=== PATIENT | female | born 2000 | race African-American/Black ===

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

== ENCOUNTER 2019-03-31 01:36 | Emergency (ER) | payer SELFPAY ==
[2019-03-31 02:42] LABS: ACETAMINOPHEN < 2 ug/mL (<2)
--- NOTE | 2019-03-31 06:58 | EDM.PDOCBH ---
ED HPI GENERAL MEDICAL PROBLEM - General Chief Complaint: Drug or Alcohol Abuse Stated Complaint: OD Time Seen by Provider: 03/31/19 01:50 Source of Information: Reports: Patient History Limitations: Reports: No Limitations - History of Present Illness INITIAL COMMENTS - FREE TEXT/NARRATIVE: 18 yo college student who took some 40 tabs of a mixture of Wellbutrin,Zantac and Iron tabs(unknown formulation).She did this in frustration because of stress ,bad grades at school. She does have a diagnosis of MDD,and goes through [facility] Therapy locally.along with the Prozac. She has also been drinking tonight. She expresses regret to have take the pills,and denies any further plans for suicide.She does not endorse any nausea,vomit,chest pain or shortness of breath. - Related Data Allergies Allergy/AdvReac Type Severity Reaction Status Date / Time mushroom Allergy Cannot Verified 09/04/18 03:40 Remember Home Meds: Home Meds FLUoxetine HCl [Fluoxetine HCl] 40 mg PO DAILY 03/31/19 [History] Ranitidine HCl [Ranitidine] 150 mg PO DAILY 03/31/19 [History] buPROPion HCL [buPROPion HCl ER] 300 mg PO ONETIME 03/31/19 [History] Past Medical History - Past Health History Medical/Surgical History: Denies Medical/Surgical History Psychiatric History: Reports: Anxiety, Depression - Past Surgical History Other Surgical History Comment: No previous surgeries. Social & Family History - Family History Family Medical History: Noncontributory - Tobacco Use Smoking Status *Q: Never Smoker - Caffeine Use Caffeine Use: Reports: Soda - Living Situation & Occupation Occupation: Student (The patient is apparently a freshman in [employer].) ED ROS GENERAL - Review of Systems Review Of Systems: Comprehensive ROS is negative, except as noted in HPI. ED EXAM, BEHAVIORAL HEALTH - Physical Exam Exam: See Below Exam Limited By: No Limitations General Appearance: Alert, WD/WN Ears: Normal External Exam Nose: Normal Inspection Throat/Mouth: Normal Inspection Head: Atraumatic Respiratory/Chest: No Respiratory Distress, Lungs Clear, No Accessory Muscle Use Cardiovascular: Normal Peripheral Pulses Extremities: Normal Inspection Neurological: Alert, Normal Mood/Affect COURSE, BEHAVIORAL HEALTH COMP - Course Vital Signs: Last Vital Signs Temp 98.7 F 03/31/19 01:40 Pulse 91 03/31/19 01:40 Resp 14 03/31/19 01:40 BP 131/70 03/31/19 01:40 Pulse Ox 97 03/31/19 01:40 Orders, Labs, Meds: Active Orders 24 hr Category Date Time Status EKG Documentation Completion [RC] ASDIRECTED Care 03/31/19 10:40 Active EKG 12 Lead [EK] Routine Ther 03/31/19 10:40 Ordered Laboratory Tests 03/31/19 03/31/19 03/31/19 Range/Units 01:59 02:00 02:00 WBC 8.3 (4.5-12.0) X10-3/uL RBC 4.77 (3.23-5.20) x10(6)uL Hgb 13.6 (11.5-15.5) g/dL Hct 41.8 (30.0-51.3) % MCV 87.5 (80-96) fL MCH 28.4 (27.7-33.6) pg MCHC 32.5 (32.2-35.4) g/dL RDW 12.2 (11.5-15.5) % Plt Count 285 (125-369) X10(3)uL MPV 7.0 L (7.4-10.4) fL Neut % (Auto) 60.8 (46-82) % Lymph % (Auto) 31.1 (13-37) % [place] % (Auto) 6.9 (4-12) % Eos % (Auto) 1 (1.0-5.0) % Baso % (Auto) 1 (0-2) % Neut # (Auto) 4.9 (1.6-8.3) # Lymph # (Auto) 2.6 (0.6-5.0) # [place] # (Auto) 0.6 (0.0-1.3) # Eos # (Auto) 0.1 (0.0-0.8) # Baso # (Auto) 0.1 (0.0-0.2) # POC VBG pH (7.31-7.41) POC VBG pCO2 (41-51) mmHG POC VBG HCO3 (23-28) mmol/L POC VBG Total CO2 (24-29) mmol/L POC VBG Base Excess (-2-3) mmol/L Sodium 145 (135-145) mmol/L Potassium 3.6 (3.5-5.3) mmol/L Chloride 107 (100-110) mmol/L Carbon Dioxide 25 (21-32) mmol/L BUN 12 (7-18) mg/dL Creatinine 0.9 (0.55-1.02) mg/dL Est Cr Clr Drug Dosing 94.12 mL/min Estimated GFR (MDRD) > 60 (>60) BUN/Creatinine Ratio 13.3 (9-20) Glucose 86 (80-116) mg/dL Calcium 9.3 (8.2-10.1) mg/dL Iron TIBC Iron Saturation Unsaturated IBC Ferritin Total Bilirubin 0.3 (0.1-1.2) mg/dL AST 34 H D (5-25) IU/L ALT 28 D (12-36) U/L Alkaline Phosphatase 78 (56-112) IU/L Total Protein 8.4 H (6.0-8.0) g/dL Albumin 4.5 (3.2-4.5) g/dL Globulin 3.9 g/dL Albumin/Globulin Ratio 1.2 TSH, Ultra Sensitive (0.52-4.13) IU/mL Urine HCG, Qual Negative (NEGATIVE) Salicylates 1.3 L (<2.8) mg/dL Urine Opiates Screen (NEGATIVE) Ur Oxycodone Screen (NEGATIVE) Ur Propoxyphene Screen (NEGATIVE) Acetaminophen < 2 L (<2) ug/mL Ur Barbituates Screen (NEGATIVE) Ur Tricyclics Screen (NEGATIVE) Ur Phencyclidine Scrn (NEGATIVE) Ur Amphetamine Screen (NEGATIVE) Urine MDMA Screen (NEGATIVE) U Benzodiazepines Scrn (NEGATIVE) U Cocaine Metab Screen (NEGATIVE) U Marijuana (THC) Screen (NEGATIVE) Ethyl Alcohol (<0.03) % 03/31/19 03/31/19 03/31/19 Range/Units 02:00 02:06 03:30 WBC (4.5-12.0) X10-3/uL RBC (3.23-5.20) x10(6)uL Hgb (11.5-15.5) g/dL Hct (30.0-51.3) % MCV (80-96) fL MCH (27.7-33.6) pg MCHC (32.2-35.4) g/dL RDW (11.5-15.5) % Plt Count (125-369) X10(3)uL MPV (7.4-10.4) fL Neut % (Auto) (46-82) % Lymph % (Auto) (13-37) % [place] % (Auto) (4-12) % Eos % (Auto) (1.0-5.0) % Baso % (Auto) (0-2) % Neut # (Auto) (1.6-8.3) # Lymph # (Auto) (0.6-5.0) # [place] # (Auto) (0.0-1.3) # Eos # (Auto) (0.0-0.8) # Baso # (Auto) (0.0-0.2) # POC VBG pH (7.31-7.41) POC VBG pCO2 (41-51) mmHG POC VBG HCO3 (23-28) mmol/L POC VBG Total CO2 (24-29) mmol/L POC VBG Base Excess (-2-3) mmol/L Sodium (135-145) mmol/L Potassium (3.5-5.3) mmol/L Chloride (100-110) mmol/L Carbon Dioxide (21-32) mmol/L BUN (7-18) mg/dL Creatinine (0.55-1.02) mg/dL Est Cr Clr Drug Dosing mL/min Estimated GFR (MDRD) (>60) BUN/Creatinine Ratio (9-20) Glucose (80-116) mg/dL Calcium (8.2-10.1) mg/dL Iron 110 TIBC 489 (h) Iron Saturation 22 Unsaturated IBC Ferritin Total Bilirubin (0.1-1.2) mg/dL AST (5-25) IU/L ALT (12-36) U/L Alkaline Phosphatase (56-112) IU/L Total Protein (6.0-8.0) g/dL Albumin (3.2-4.5) g/dL Globulin g/dL Albumin/Globulin Ratio TSH, Ultra Sensitive (0.52-4.13) IU/mL Urine HCG, Qual (NEGATIVE) Salicylates (<2.8) mg/dL Urine Opiates Screen Negative (NEGATIVE) Ur Oxycodone Screen Negative (NEGATIVE) Ur Propoxyphene Screen Negative (NEGATIVE) Acetaminophen (<2) ug/mL Ur Barbituates Screen Negative (NEGATIVE) Ur Tricyclics Screen Negative (NEGATIVE) Ur Phencyclidine Scrn Negative (NEGATIVE) Ur Amphetamine Screen Negative (NEGATIVE) Urine MDMA Screen Negative (NEGATIVE) U Benzodiazepines Scrn Negative (NEGATIVE) U Cocaine Metab Screen Negative (NEGATIVE) U Marijuana (THC) Screen Negative (NEGATIVE) Ethyl Alcohol 0.12 H (<0.03) % 03/31/19 03/31/19 03/31/19 Range/Units 07:36 11:45 11:45 WBC (4.5-12.0) X10-3/uL RBC (3.23-5.20) x10(6)uL Hgb (11.5-15.5) g/dL Hct (30.0-51.3) % MCV (80-96) fL MCH (27.7-33.6) pg MCHC (32.2-35.4) g/dL RDW (11.5-15.5) % Plt Count (125-369) X10(3)uL MPV (7.4-10.4) fL Neut % (Auto) (46-82) % Lymph % (Auto) (13-37) % [place] % (Auto) (4-12) % Eos % (Auto) (1.0-5.0) % Baso % (Auto) (0-2) % Neut # (Auto) (1.6-8.3) # Lymph # (Auto) (0.6-5.0) # [place] # (Auto) (0.0-1.3) # Eos # (Auto) (0.0-0.8) # Baso # (Auto) (0.0-0.2) # POC VBG pH 7.39 (7.31-7.41) POC VBG pCO2 38.6 L (41-51) mmHG POC VBG HCO3 23.5 (23-28) mmol/L POC VBG Total CO2 25 (24-29) mmol/L POC VBG Base Excess -1 (-2-3) mmol/L Sodium (135-145) mmol/L Potassium (3.5-5.3) mmol/L Chloride (100-110) mmol/L Carbon Dioxide (21-32) mmol/L BUN (7-18) mg/dL Creatinine (0.55-1.02) mg/dL Est Cr Clr Drug Dosing mL/min Estimated GFR (MDRD) (>60) BUN/Creatinine Ratio (9-20) Glucose (80-116) mg/dL Calcium (8.2-10.1) mg/dL Iron TNP TIBC 505 Iron Saturation 18 Unsaturated IBC TNP Ferritin 9 Total Bilirubin (0.1-1.2) mg/dL AST (5-25) IU/L ALT (12-36) U/L Alkaline Phosphatase (56-112) IU/L Total Protein (6.0-8.0) g/dL Albumin (3.2-4.5) g/dL Globulin g/dL Albumin/Globulin Ratio TSH, Ultra Sensitive (0.52-4.13) IU/mL Urine HCG, Qual (NEGATIVE) Salicylates (<2.8) mg/dL Urine Opiates Screen (NEGATIVE) Ur Oxycodone Screen (NEGATIVE) Ur Propoxyphene Screen (NEGATIVE) Acetaminophen (<2) ug/mL Ur Barbituates Screen (NEGATIVE) Ur Tricyclics Screen (NEGATIVE) Ur Phencyclidine Scrn (NEGATIVE) Ur Amphetamine Screen (NEGATIVE) Urine MDMA Screen (NEGATIVE) U Benzodiazepines Scrn (NEGATIVE) U Cocaine Metab Screen (NEGATIVE) U Marijuana (THC) Screen (NEGATIVE) Ethyl Alcohol (<0.03) % 03/31/19 03/31/19 Range/Units 11:45 11:45 WBC (4.5-12.0) X10-3/uL RBC (3.23-5.20) x10(6)uL Hgb (11.5-15.5) g/dL Hct (30.0-51.3) % MCV (80-96) fL MCH (27.7-33.6) pg MCHC (32.2-35.4) g/dL RDW (11.5-15.5) % Plt Count (125-369) X10(3)uL MPV (7.4-10.4) fL Neut % (Auto) (46-82) % Lymph % (Auto) (13-37) % [place] % (Auto) (4-12) % Eos % (Auto) (1.0-5.0) % Baso % (Auto) (0-2) % Neut # (Auto) (1.6-8.3) # Lymph # (Auto) (0.6-5.0) # [place] # (Auto) (0.0-1.3) # Eos # (Auto) (0.0-0.8) # Baso # (Auto) (0.0-0.2) # POC VBG pH (7.31-7.41) POC VBG pCO2 (41-51) mmHG POC VBG HCO3 (23-28) mmol/L POC VBG Total CO2 (24-29) mmol/L POC VBG Base Excess (-2-3) mmol/L Sodium (135-145) mmol/L Potassium (3.5-5.3) mmol/L Chloride (100-110) mmol/L Carbon Dioxide (21-32) mmol/L BUN (7-18) mg/dL Creatinine (0.55-1.02) mg/dL Est Cr Clr Drug Dosing mL/min Estimated GFR (MDRD) (>60) BUN/Creatinine Ratio (9-20) Glucose (80-116) mg/dL Calcium (8.2-10.1) mg/dL Iron TIBC Iron Saturation Unsaturated IBC Ferritin Total Bilirubin (0.1-1.2) mg/dL AST (5-25) IU/L ALT (12-36) U/L Alkaline Phosphatase (56-112) IU/L Total Protein (6.0-8.0) g/dL Albumin (3.2-4.5) g/dL Globulin g/dL Albumin/Globulin Ratio TSH, Ultra Sensitive 2.54 (0.52-4.13) IU/mL Urine HCG, Qual (NEGATIVE) Salicylates (<2.8) mg/dL Urine Opiates Screen (NEGATIVE) Ur Oxycodone Screen (NEGATIVE) Ur Propoxyphene Screen (NEGATIVE) Acetaminophen (<2) ug/mL Ur Barbituates Screen (NEGATIVE) Ur Tricyclics Screen (NEGATIVE) Ur Phencyclidine Scrn (NEGATIVE) Ur Amphetamine Screen (NEGATIVE) Urine MDMA Screen (NEGATIVE) U Benzodiazepines Scrn (NEGATIVE) U Cocaine Metab Screen (NEGATIVE) U Marijuana (THC) Screen (NEGATIVE) Ethyl Alcohol < 0.03 (<0.03) % Departure - Departure Time of Disposition: 07:50 Disposition: Home, Self-Care 01 Condition: Good Clinical Impression: Poisoning by iron and its compounds, intentional self-harm, initial encounter, Acute alcohol intoxication, Suicidal ideation, Alcohol abuse - Discharge Information Instructions: Drug Overdose, Supporting Someone With Self-Harming Behavior, What You Need to Know About Poisoning, Adult, Self-Harming Behavior Information Referrals: Mabel Rosa NP [Primary Care Provider] - Forms: ED Department Discharge Care Plan Goals: Return to the ER if you have feelings of harming yourself. Please seek supportive services. Sepsis Event Note - Evaluation Sepsis Screening Result: No Definite Risk - Focused Exam Date Exam was Performed: 04/01/19 Time Exam was Performed: 07:50 - Problem List & Annotations (1) MDD (major depressive disorder) SNOMED Code(s): 636215482 Code(s): F32.9 - MAJOR DEPRESSIVE DISORDER, SINGLE EPISODE, UNSPECIFIED Status: Acute Qualifiers: Major depression recurrence: recurrent Active/Remission status: currently active (2) Overdose SNOMED Code(s): 38725958 Code(s): T50.901A - POISONING BY UNSP DRUG/MEDS/BIOL SUBST, ACCIDENTAL, INIT Status: Acute Qualifiers: Encounter type: initial encounter (3) Poisoning by iron and its compounds, intentional self-harm, initial encounter SNOMED Code(s): 06455930, 717270977 Code(s): T45.4X2A - POISONING BY IRON AND ITS COMPOUNDS, SELF-HARM, INIT Status: Acute - Problem List Review Problem List Initiated/Reviewed/Updated: Yes - Assessment/Plan Plan: Abdominal Xray does not show any opaque pills. She has no major symptoms.Obtain SIC levels.
[2019-03-31 09:39] LABS: IRON SATURATION 22
[2019-03-31 09:40] LABS: IRON BIND.CAP.(TIBC) 489 (H); IRON, SERUM 110
--- NOTE | 2019-03-31 11:33 | EDM.PDOCBH ---
ED HPI GENERAL MEDICAL PROBLEM - General Chief Complaint: Drug or Alcohol Abuse Stated Complaint: OD Time Seen by Provider: 03/31/19 08:30 Source of Information: Reports: Patient History Limitations: Reports: No Limitations - History of Present Illness INITIAL COMMENTS - FREE TEXT/NARRATIVE: 18 yo college student who took some 40 tabs of a mixture of Wellbutrin,Zantac and Iron tabs(unknown formulation).She did this in frustration because of stress ,bad grades at school. She does have a diagnosis of MDD,and goes through [facility] Behavior[facility] Therapy locally.along with the Prozac. She has also been drinking tonight. She expresses regret to have take the pills,and denies any further plans for suicide.She does not endorse any nausea,vomit,chest pain or shortness of breath. Onset Date: 03/30/19 Duration: Improving Improves with: Reports: None Worsens with: Reports: None Associated Symptoms: Reports: No Other Symptoms - Related Data Allergies Allergy/AdvReac Type Severity Reaction Status Date / Time mushroom Allergy Cannot Verified 09/04/18 03:40 Remember Home Meds: Home Meds FLUoxetine HCl [Fluoxetine HCl] 40 mg PO DAILY 03/31/19 [History] Ranitidine HCl [Ranitidine] 150 mg PO DAILY 03/31/19 [History] buPROPion HCL [buPROPion HCl ER] 300 mg PO ONETIME 03/31/19 [History] Past Medical History - Past Health History Medical/Surgical History: Denies Medical/Surgical History Psychiatric History: Reports: Anxiety, Depression - Past Surgical History Other Surgical History Comment: No previous surgeries. Social & Family History - Family History Family Medical History: Noncontributory - Tobacco Use Smoking Status *Q: Never Smoker - Caffeine Use Caffeine Use: Reports: Soda - Living Situation & Occupation Occupation: Student (The patient is apparently a freshman in [id number] ED ROS GENERAL - Review of Systems Review Of Systems: Comprehensive ROS is negative, except as noted in HPI. ED EXAM, BEHAVIORAL HEALTH - Physical Exam Exam: See Below Text/Narrative:: pt has had no symptoms since arrival in the ER , Has had no chest pains , no palpitations , no abdominal cramps . Behavior has been cooperative Exam Limited By: No Limitations General Appearance: Alert, WD/WN, No Apparent Distress Eye Exam: Bilateral Eye: EOMI Ears: Normal External Exam Nose: Normal Inspection Throat/Mouth: Normal Oropharynx Head: Atraumatic, Normocephalic Neck: Supple, Non-Tender, Full Range of Motion Respiratory/Chest: Lungs Clear, Normal Breath Sounds GI/Abdominal: Soft, Non-Tender, No Organomegaly, No Distention Back Exam: Normal Inspection, Full Range of Motion Extremities: Normal Range of Motion, Non-Tender Neurological: Alert, Normal Mood/Affect, CN II-XII Intact, Oriented x 3 Psychiatric: Alert, Normal Affect Skin Exam: Warm EKG INTERPRETATION EKG Date: 03/31/19 Rhythm: NSR [place]: Normal P-Wave: Present QRS: Normal ST-T: Normal QT: Normal Comparison: Change From Previous EKG EKG Interpretation Comments: no longer has prolonged QT compared to initial EKG COURSE, BEHAVIORAL HEALTH COMP - Course Vital Signs: Last Vital Signs Temp 37.1 C 03/31/19 01:40 Pulse 91 03/31/19 01:40 Resp 14 03/31/19 01:40 BP 131/70 03/31/19 01:40 Pulse Ox 97 03/31/19 01:40 Orders, Labs, Meds: Laboratory Tests 03/31/19 03/31/19 03/31/19 Range/Units 01:59 02:00 02:00 WBC 8.3 (4.5-12.0) X10-3/uL RBC 4.77 (3.23-5.20) x10(6)uL Hgb 13.6 (11.5-15.5) g/dL Hct 41.8 (30.0-51.3) % MCV 87.5 (80-96) fL MCH 28.4 (27.7-33.6) pg MCHC 32.5 (32.2-35.4) g/dL RDW 12.2 (11.5-15.5) % Plt Count 285 (125-369) X10(3)uL MPV 7.0 L (7.4-10.4) fL Neut % (Auto) 60.8 (46-82) % Lymph % (Auto) 31.1 (13-37) % [place] % (Auto) 6.9 (4-12) % Eos % (Auto) 1 (1.0-5.0) % Baso % (Auto) 1 (0-2) % Neut # (Auto) 4.9 (1.6-8.3) # Lymph # (Auto) 2.6 (0.6-5.0) # [place] # (Auto) 0.6 (0.0-1.3) # Eos # (Auto) 0.1 (0.0-0.8) # Baso # (Auto) 0.1 (0.0-0.2) # POC VBG pH (7.31-7.41) POC VBG pCO2 (41-51) mmHG POC VBG HCO3 (23-28) mmol/L POC VBG Total CO2 (24-29) mmol/L POC VBG Base Excess (-2-3) mmol/L Sodium 145 (135-145) mmol/L Potassium 3.6 (3.5-5.3) mmol/L Chloride 107 (100-110) mmol/L Carbon Dioxide 25 (21-32) mmol/L BUN 12 (7-18) mg/dL Creatinine 0.9 (0.55-1.02) mg/dL Est Cr Clr Drug Dosing 94.12 mL/min Estimated GFR (MDRD) > 60 (>60) BUN/Creatinine Ratio 13.3 (9-20) Glucose 86 (80-116) mg/dL Calcium 9.3 (8.2-10.1) mg/dL Iron TIBC Iron Saturation Unsaturated IBC Ferritin Total Bilirubin 0.3 (0.1-1.2) mg/dL AST 34 H D (5-25) IU/L ALT 28 D (12-36) U/L Alkaline Phosphatase 78 (56-112) IU/L Total Protein 8.4 H (6.0-8.0) g/dL Albumin 4.5 (3.2-4.5) g/dL Globulin 3.9 g/dL Albumin/Globulin Ratio 1.2 TSH, Ultra Sensitive (0.52-4.13) IU/mL Urine HCG, Qual Negative (NEGATIVE) Salicylates 1.3 L (<2.8) mg/dL Urine Opiates Screen (NEGATIVE) Ur Oxycodone Screen (NEGATIVE) Ur Propoxyphene Screen (NEGATIVE) Acetaminophen < 2 L (<2) ug/mL Ur Barbituates Screen (NEGATIVE) Ur Tricyclics Screen (NEGATIVE) Ur Phencyclidine Scrn (NEGATIVE) Ur Amphetamine Screen (NEGATIVE) Urine MDMA Screen (NEGATIVE) U Benzodiazepines Scrn (NEGATIVE) U Cocaine Metab Screen (NEGATIVE) U Marijuana (THC) Screen (NEGATIVE) Ethyl Alcohol (<0.03) % 03/31/19 03/31/19 03/31/19 Range/Units 02:00 02:06 03:30 WBC (4.5-12.0) X10-3/uL RBC (3.23-5.20) x10(6)uL Hgb (11.5-15.5) g/dL Hct (30.0-51.3) % MCV (80-96) fL MCH (27.7-33.6) pg MCHC (32.2-35.4) g/dL RDW (11.5-15.5) % Plt Count (125-369) X10(3)uL MPV (7.4-10.4) fL Neut % (Auto) (46-82) % Lymph % (Auto) (13-37) % [place] % (Auto) (4-12) % Eos % (Auto) (1.0-5.0) % Baso % (Auto) (0-2) % Neut # (Auto) (1.6-8.3) # Lymph # (Auto) (0.6-5.0) # [place] # (Auto) (0.0-1.3) # Eos # (Auto) (0.0-0.8) # Baso # (Auto) (0.0-0.2) # POC VBG pH (7.31-7.41) POC VBG pCO2 (41-51) mmHG POC VBG HCO3 (23-28) mmol/L POC VBG Total CO2 (24-29) mmol/L POC VBG Base Excess (-2-3) mmol/L Sodium (135-145) mmol/L Potassium (3.5-5.3) mmol/L Chloride (100-110) mmol/L Carbon Dioxide (21-32) mmol/L BUN (7-18) mg/dL Creatinine (0.55-1.02) mg/dL Est Cr Clr Drug Dosing mL/min Estimated GFR (MDRD) (>60) BUN/Creatinine Ratio (9-20) Glucose (80-116) mg/dL Calcium (8.2-10.1) mg/dL Iron 110 TIBC 489 (h) Iron Saturation 22 Unsaturated IBC Ferritin Total Bilirubin (0.1-1.2) mg/dL AST (5-25) IU/L ALT (12-36) U/L Alkaline Phosphatase (56-112) IU/L Total Protein (6.0-8.0) g/dL Albumin (3.2-4.5) g/dL Globulin g/dL Albumin/Globulin Ratio TSH, Ultra Sensitive (0.52-4.13) IU/mL Urine HCG, Qual (NEGATIVE) Salicylates (<2.8) mg/dL Urine Opiates Screen Negative (NEGATIVE) Ur Oxycodone Screen Negative (NEGATIVE) Ur Propoxyphene Screen Negative (NEGATIVE) Acetaminophen (<2) ug/mL Ur Barbituates Screen Negative (NEGATIVE) Ur Tricyclics Screen Negative (NEGATIVE) Ur Phencyclidine Scrn Negative (NEGATIVE) Ur Amphetamine Screen Negative (NEGATIVE) Urine MDMA Screen Negative (NEGATIVE) U Benzodiazepines Scrn Negative (NEGATIVE) U Cocaine Metab Screen Negative (NEGATIVE) U Marijuana (THC) Screen Negative (NEGATIVE) Ethyl Alcohol 0.12 H (<0.03) % 03/31/19 03/31/19 03/31/19 Range/Units 07:36 11:45 11:45 WBC (4.5-12.0) X10-3/uL RBC (3.23-5.20) x10(6)uL Hgb (11.5-15.5) g/dL Hct (30.0-51.3) % MCV (80-96) fL MCH (27.7-33.6) pg MCHC (32.2-35.4) g/dL RDW (11.5-15.5) % Plt Count (125-369) X10(3)uL MPV (7.4-10.4) fL Neut % (Auto) (46-82) % Lymph % (Auto) (13-37) % [place] % (Auto) (4-12) % Eos % (Auto) (1.0-5.0) % Baso % (Auto) (0-2) % Neut # (Auto) (1.6-8.3) # Lymph # (Auto) (0.6-5.0) # [place] # (Auto) (0.0-1.3) # Eos # (Auto) (0.0-0.8) # Baso # (Auto) (0.0-0.2) # POC VBG pH 7.39 (7.31-7.41) POC VBG pCO2 38.6 L (41-51) mmHG POC VBG HCO3 23.5 (23-28) mmol/L POC VBG Total CO2 25 (24-29) mmol/L POC VBG Base Excess -1 (-2-3) mmol/L Sodium (135-145) mmol/L Potassium (3.5-5.3) mmol/L Chloride (100-110) mmol/L Carbon Dioxide (21-32) mmol/L BUN (7-18) mg/dL Creatinine (0.55-1.02) mg/dL Est Cr Clr Drug Dosing mL/min Estimated GFR (MDRD) (>60) BUN/Creatinine Ratio (9-20) Glucose (80-116) mg/dL Calcium (8.2-10.1) mg/dL Iron TNP TIBC 505 Iron Saturation 18 Unsaturated IBC TNP Ferritin 9 Total Bilirubin (0.1-1.2) mg/dL AST (5-25) IU/L ALT (12-36) U/L Alkaline Phosphatase (56-112) IU/L Total Protein (6.0-8.0) g/dL Albumin (3.2-4.5) g/dL Globulin g/dL Albumin/Globulin Ratio TSH, Ultra Sensitive (0.52-4.13) IU/mL Urine HCG, Qual (NEGATIVE) Salicylates (<2.8) mg/dL Urine Opiates Screen (NEGATIVE) Ur Oxycodone Screen (NEGATIVE) Ur Propoxyphene Screen (NEGATIVE) Acetaminophen (<2) ug/mL Ur Barbituates Screen (NEGATIVE) Ur Tricyclics Screen (NEGATIVE) Ur Phencyclidine Scrn (NEGATIVE) Ur Amphetamine Screen (NEGATIVE) Urine MDMA Screen (NEGATIVE) U Benzodiazepines Scrn (NEGATIVE) U Cocaine Metab Screen (NEGATIVE) U Marijuana (THC) Screen (NEGATIVE) Ethyl Alcohol (<0.03) % 03/31/19 03/31/19 Range/Units 11:45 11:45 WBC (4.5-12.0) X10-3/uL RBC (3.23-5.20) x10(6)uL Hgb (11.5-15.5) g/dL Hct (30.0-51.3) % MCV (80-96) fL MCH (27.7-33.6) pg MCHC (32.2-35.4) g/dL RDW (11.5-15.5) % Plt Count (125-369) X10(3)uL MPV (7.4-10.4) fL Neut % (Auto) (46-82) % Lymph % (Auto) (13-37) % [place] % (Auto) (4-12) % Eos % (Auto) (1.0-5.0) % Baso % (Auto) (0-2) % Neut # (Auto) (1.6-8.3) # Lymph # (Auto) (0.6-5.0) # [place] # (Auto) (0.0-1.3) # Eos # (Auto) (0.0-0.8) # Baso # (Auto) (0.0-0.2) # POC VBG pH (7.31-7.41) POC VBG pCO2 (41-51) mmHG POC VBG HCO3 (23-28) mmol/L POC VBG Total CO2 (24-29) mmol/L POC VBG Base Excess (-2-3) mmol/L Sodium (135-145) mmol/L Potassium (3.5-5.3) mmol/L Chloride (100-110) mmol/L Carbon Dioxide (21-32) mmol/L BUN (7-18) mg/dL Creatinine (0.55-1.02) mg/dL Est Cr Clr Drug Dosing mL/min Estimated GFR (MDRD) (>60) BUN/Creatinine Ratio (9-20) Glucose (80-116) mg/dL Calcium (8.2-10.1) mg/dL Iron TIBC Iron Saturation Unsaturated IBC Ferritin Total Bilirubin (0.1-1.2) mg/dL AST (5-25) IU/L ALT (12-36) U/L Alkaline Phosphatase (56-112) IU/L Total Protein (6.0-8.0) g/dL Albumin (3.2-4.5) g/dL Globulin g/dL Albumin/Globulin Ratio TSH, Ultra Sensitive 2.54 (0.52-4.13) IU/mL Urine HCG, Qual (NEGATIVE) Salicylates (<2.8) mg/dL Urine Opiates Screen (NEGATIVE) Ur Oxycodone Screen (NEGATIVE) Ur Propoxyphene Screen (NEGATIVE) Acetaminophen (<2) ug/mL Ur Barbituates Screen (NEGATIVE) Ur Tricyclics Screen (NEGATIVE) Ur Phencyclidine Scrn (NEGATIVE) Ur Amphetamine Screen (NEGATIVE) Urine MDMA Screen (NEGATIVE) U Benzodiazepines Scrn (NEGATIVE) U Cocaine Metab Screen (NEGATIVE) U Marijuana (THC) Screen (NEGATIVE) Ethyl Alcohol < 0.03 (<0.03) % Re-Assessment/Re-Exam: labs reviewed and iron levels are within normal range . pt is asymptomatic Call came form poison control and requested repeat EKG ( done ) and iron levels . Repeat Iron ferritin and TIBC levels sent pt is currently awaiting placement Medical Clearance: 03/31/19 15:33 pt was cleared medically to go for inpatient therapy She declined to go for inpatient treatment Stated she had talked to crisis management and had plans in place to continue with her current therapy . Iron levels have remained within normal limits Has had no seizure episode ( overdosed on Bupropion) Has appointment set up with her psychotherapist , will FU will PCP also Discharge vs Psych Eval/Treatment:: 03/31/19 15:36 pt will be discharged home as she declined to go for inpatient psychotherapy Departure - Departure Time of Disposition: 16:54 Disposition: Home, Self-Care 01 Condition: Good Clinical Impression: Poisoning by iron and its compounds, intentional self-harm, initial encounter, Suicidal ideation, Alcohol abuse Acute alcohol intoxication Qualifiers: Complication of substance-induced condition: uncomplicated Qualified Code(s): F10.920 - Alcohol use, unspecified with intoxication, uncomplicated - Discharge Information *PRESCRIPTION DRUG MONITORING PROGRAM REVIEWED*: Not Applicable *COPY OF PRESCRIPTION DRUG MONITORING REPORT IN PATIENT TRAVON: Not Applicable Instructions: Drug Overdose, Supporting Someone With Self-Harming Behavior, What You Need to Know About Poisoning, Adult, Self-Harming Behavior Information Referrals: Mabel Rosa NP [Primary Care Provider] - Forms: ED Department Discharge Care Plan Goals: Return to the ER if you have feelings of harming yourself. Please seek supportive services. Sepsis Event Note - Evaluation Sepsis Screening Result: No Definite Risk - Focused Exam Date Exam was Performed: 04/02/19 Time Exam was Performed: 07:05
[2019-03-31 15:19] LABS: IRON BIND.CAP.(TIBC) 505
[2019-03-31 15:20] LABS: IRON SATURATION 18
--- NOTE | 2019-03-31 18:06 | CR ---
INDICATION: Drug overdose. ABDOMEN SERIES WITH CHEST, ONE VIEW: AP view of the chest with 5 views of the abdomen in supine and upright projections revealed a moderate dextroconvex scoliosis at the lower middle thoracic spine. The heart and mediastinum were unremarkable. A definite active infiltrate or effusion was not identified. The pattern of gas and feces is nonspecific without evidence of free air or obstruction. There is a dextroconcave scoliosis at the upper middle lumbar spine. No organomegaly or mass lesions or pathologic calcifications were noted. IMPRESSION: 1. Nonacute abdomen. 2. Nonacute chest. 3. Scoliosis. MTDD
== END 2019-03-31 16:54 | disposition home or self-care (01) ==
LOC: FB.ED 01:36
DX: T45.4X2A Poisoning by iron and its compounds, intentional self-harm, initial encounter (principal); T43.292A Poisoning by other antidepressants, intentional self-harm, initial encounter; T47.0X2A Poisoning by histamine H2-receptor blockers, intentional self-harm, initial encounter; F10.920 Alcohol use, unspecified with intoxication, uncomplicated; F32.9 Major depressive disorder, single episode, unspecified; Z91.018 Allergy to other foods; Z79.899 Other long term (current) drug therapy; Y90.0 Blood alcohol level of less than 20 mg/100 ml
CPT/HCPCS: 36415; 74022; 80053; 80305-QW; 80307; 81025; 82728; 82803; 83540; 83550; 84443; 85025; 93005; 99285-25

== ENCOUNTER 2022-03-27 09:28 | Emergency (ER) | payer MEDICAID ==
[2022-03-27 10:28] LABS: ESTIMATED GFR 82 mL/min (>60)
== END 2022-03-27 11:35 | disposition home or self-care (01) ==
LOC: FB.ED 09:28
DX: N92.6 Irregular menstruation, unspecified (principal); Z91.018 Allergy to other foods; Z91.09 Other allergy status, other than to drugs and biological substances; Z72.0 Tobacco use
CPT/HCPCS: 36415; 80053; 81001; 82150; 83690; 85025; 99282; 99284

== ENCOUNTER 2024-04-22 18:17 | Emergency (ER) | payer MEDICAID, OTHER ==
[2024-04-22] MEDS: traMADol 50 MG Tab PO ONE (19:29)
== END 2024-04-22 22:30 | disposition home or self-care (01) ==
LOC: FB.ED 18:17
DX: S00.81XA Abrasion of other part of head, initial encounter (principal); M25.552 Pain in left hip; Z91.030 Bee allergy status; Z91.018 Allergy to other foods; Z79.899 Other long term (current) drug therapy; V49.49XA Driver injured in collision with other motor vehicles in traffic accident, initial encounter; Y93.89 Activity, other specified
CPT/HCPCS: 70450; 72125; 72192; 73502; 99284; A9270

== ENCOUNTER 2024-05-28 14:53 | Emergency (ER) | payer MEDICAID | END 2024-05-28 15:35 | disposition home or self-care (01) | LOC: FB.ED 14:53 | DX: T17.1XXA Foreign body in nostril, initial encounter (principal); Z91.030 Bee allergy status; Z91.018 Allergy to other foods; Z79.899 Other long term (current) drug therapy | CPT/HCPCS: 99282 ==

== ENCOUNTER 2024-06-14 22:41 | Emergency (ER) | payer MEDICAID ==
[2024-06-14] MEDS: LORazepam 2 MG/ML SDV IVPUSH ONE (22:41)
[2024-06-14] MEDS ORDERED: Sodium Chloride 0.9% 10 ML Syringe FLUSH PRN (22:42)
[2024-06-14] MEDS: OLANZapine 10 MG Vial ONE (22:45)
[2024-06-14] MEDS ORDERED: OLANZapine 10 MG Vial IM ONE (22:45)
[2024-06-14 22:59] LABS: BASOPHILS ABSOLUTE AUTO 0.1 x10-3/uL (0.0-0.1); BASOPHILS PERCENT AUTO 1.1 % (0.2-1.5); EOSINOPHILS ABSOLUTE AUTO 0.2 x10-3/uL (0.0-0.8); EOSINOPHILS PERCENT AUTO 2.5 % (0.6-8.1); HEMATOCRIT 42.9 % (34.2-48.2); HEMOGLOBIN 14.6 g/dL (11.4-15.5); LYMPHOCYTES ABSOLUTE AUTO 2.7 x10-3/uL (1.0-4.4); LYMPHOCYTES PERCENT AUTO 42.2 % (18.4-52.1); MEAN CORPUSCULAR HEMOGLOBIN 29.9 pg (23.9-33.9); MEAN CORPUSCULAR HGB CONC 33.9 g/dL (31.9-34.8); MEAN CORPUSCULAR VOLUME 88.2 fL (76.7-100.5); MEAN PLATELET VOLUME 6.6 fL (7.1-12.4); MONOCYTES ABSOLUTE AUTO 0.5 x10-3/uL (0.3-1.0); MONOCYTES PERCENT AUTO 7.3 % (4.4-15.7); NEUTROPHILS PERCENT AUTO 46.9 % (30.8-76.2); PLATELET COUNT,PLT 306 x10(3)uL (151-488); RED BLOOD CELL COUNT 4.87 x10(6)uL (3.60-5.20); RED CELL DISTRIBUTION WIDTH 13.5 % (12.3-16.5); WHITE BLOOD CELL COUNT,WBC 6.3 x10-3/uL (3.0-10.3)
[2024-06-14 23:05] LABS: BLOOD UREA NITROGEN,BUN 8 mg/dL (7-18); BUN/CREATININE RATIO 8.9 (9-20); CALCIUM 8.9 mg/dL (8.6-10.2); CARBON DIOXIDE,CO2 22 mmol/L (21-32); CHLORIDE,CL 107 mmol/L (100-110); CREATININE 0.9 mg/dL (0.55-1.02); EST CRCL DRUG DOSING (CG) 90.23 mL/min; ESTIMATED GFR 92 mL/min (>60); GLUCOSE RANDOM 97 mg/dL (80-116); POTASSIUM,K 3.4 mmol/L (3.5-5.3); SODIUM,NA 144 mmol/L (135-145)
[2024-06-14 23:11] LABS: ALANINE AMINOTRANSFERASE,ALT 31 U/L (12-36); ALBUMIN 4.3 g/dL (3.5-5.2); ALKALINE PHOSPHATASE 64 IU/L (56-112); ASPARTATE AMNIOTRANSFERASE,AST 26 IU/L (5-25); BILIRUBIN TOTAL 0.4 mg/dL (0.1-1.3); PROTEIN TOTAL,TP 8.5 g/dL (6.0-8.0)
[2024-06-14] MEDS: Thiamine 200 MG/2 ML MDV IVPUSH ONE (23:52)
[2024-06-14] MEDS: Sodium Chloride 0.9% 1,000 ML IV SCH (23:53)
[2024-06-15 00:01] LABS: APPEARANCE,URINE CLEAR (CLEAR); BILIRUBIN,URINE NEGATIVE (NEGATIVE); COLOR,URINE YELLOW (YELLOW); GLUCOSE,URINE NORMAL (NORMAL); KETONES,URINE NEGATIVE (NEGATIVE); LEUKOCYTE ESTERASE,URINE NEGATIVE (NEGATIVE); NITRITE,URINE NEGATIVE (NEGATIVE); OCCULT BLOOD,URINE NEGATIVE (NEGATIVE); PROTEIN,URINE NEGATIVE (NEGATIVE); UROBILINOGEN,URINE NORMAL (NEGATIVE)
[2024-06-15 00:02] LABS: SALICYLATE 3.4 mg/dL (<2.8)
[2024-06-15 00:03] LABS: ACETAMINOPHEN < 2 ug/mL (<2)
[2024-06-15 00:20] LABS: AMPHETAMINES SCREEN, URINE NEGATIVE (NEGATIVE); BARBITURATE SCREEN,URINE NEGATIVE (NEGATIVE); BENZODIAZEPINES SCREEN,URINE NEGATIVE (NEGATIVE); BUPRENORPHINE SCREEN,URINE NEGATIVE (NEGATIVE); METHADONE SCREEN, URINE NEGATIVE (NEGATIVE); METHAMPHETAMINE SCREEN, URINE NEGATIVE (NEGATIVE); OXYCODONE SCREEN,URINE NEGATIVE (NEGATIVE); THC SCREEN,URINE NEGATIVE (NEGATIVE)
[2024-06-17 01:51] LABS: THYROXINE, TOTAL T4 8.39 ug/dL (4.50-11.70)
== END 2024-06-15 09:45 | disposition home or self-care (01) ==
LOC: FB.ED 22:41
DX: F10.129 Alcohol abuse with intoxication, unspecified (principal); Z91.030 Bee allergy status; Z91.018 Allergy to other foods; Z79.899 Other long term (current) drug therapy; Y90.0 Blood alcohol level of less than 20 mg/100 ml
CPT/HCPCS: 36415; 71045; 80053; 80143; 80179; 80307; 81003; 81025; 84436; 84443; 85025; 96361; 96374; 96375; 99284; J2060; J2359; J3411; J7030